=== PATIENT | male | born 1990 | race Caucasian/White ===

== ENCOUNTER 2017-01-14 21:29 | Emergency (ER) | payer OTHER ==
[~2017-01-14] VITALS: Ht 175.3 cm; Wt 75.0 kg
[2017-01-14 21:30] VITALS: BP 149/72
[2017-01-14] MEDS ORDERED: thera-flu (21:41)
[2017-01-14] MEDS ORDERED: MUCI600T31 PO (21:41)
[2017-01-14] MEDS ORDERED: COUGH PO (21:41)
[2017-01-14] MEDS ORDERED: TYLENOL COLD PO (21:41)
[2017-01-14] MEDS ORDERED: ALBUTEROL SULFATE 2.5 MG/0.5 ML INH NEB SOLN INH ONE (23:15)
[2017-01-14] MEDS ORDERED: TUSSICAPS ER 10/8MG CAPSULE PO ONE (23:15)
[2017-01-14] MEDS ORDERED: TUSSSUS6 PO (23:46)
[2017-01-14] MEDS ORDERED: ALBU17IN2 INH (23:46)
--- NOTE | 2017-01-15 07:52 | REP ---
PA and lateral chest: There are no comparisons. The lung reyna are clear. The cardiac size is normal The lizett, mediastinum, and bony thorax are unremarkable. Impression: Negative PA and lateral chest. Signed by Praful Nova MD 01/15/2017 07:43 A
== END 2017-01-14 23:58 | disposition home or self-care (01) ==
LOC: M ED 21:29
DX: J20.9 Acute bronchitis, unspecified (principal)

== ENCOUNTER 2017-01-18 23:29 | Emergency (ER) | payer OTHER ==
[~2017-01-18] VITALS: Ht 172.7 cm; Wt 90.9 kg
[~2017-01-18 23:29] MED LIST: ALBU17IN2 INH; COUGH PO; MUCI600T31 PO; TUSSSUS6 PO; TYLENOL COLD PO; thera-flu
[2017-01-19] MEDS ORDERED: ALBUTEROL SULFATE 2.5 MG/0.5 ML INH NEB SOLN NEB ONE (01:45)
[2017-01-19] MEDS ORDERED: ZITHTAB PO (02:30)
[2017-01-19 02:49] VITALS: BP 154/78
--- NOTE | 2017-01-19 08:49 | REP ---
Chest two views HISTORY: Shortness of breath Comparison: 01/14/2017 The lungs are clear. The heart is normal in size. The pulmonary vasculature is normal in appearance. The bony structure is intact. IMPRESSION: No acute disease. Signed by Curtis Arellano MD 01/19/2017 08:41 A
== END 2017-01-19 02:51 | disposition home or self-care (01) ==
LOC: M ED 23:29
DX: J20.9 Acute bronchitis, unspecified (principal)

== ENCOUNTER → 2017-03-07 | Outpatient (CLI) | payer OTHER ==
[~2017-03-07] MED LIST changes: +METHACHOLINE KIT (J7674) INH ONE; +ZITHTAB PO
--- NOTE | 2017-03-07 16:29 | PFTRPT ---
Tech: Wicho ACOSTA RRT Age: 27 Sex: Male Race: Height: 68.00 Inches Weight: 200.00 Lbs BSA: 2.04 Diagnosis: R06.02 METHACHOLINE CHALLENGE REPORT: ORDERING PROVIDER: EDGAR Waters DATE OF SERVICE: 03/07/17 INTERPRETATION: The study was of excellent technical quality. Under protocol, methacholine was administered. At a dose of 0.025 mg (0.125 CDUs), a 22% decline in the FEV1 was noted. No PC20 was calculated. Flow rates did return to baseline post bronchodilator administration. IMPRESSION: Positive methacholine challenge study. MTDD
== END ==
LOC: M CARPUL 15:36
PROVIDERS: ATTEND Nurse Practitioner Adult Health
DX: R06.02 Shortness of breath (principal)
CPT/HCPCS: 94070; J7674